=== PATIENT | female | born 1940 | race Caucasian/White ===

== ENCOUNTER → 2023-03-01 | Outpatient (CLI) | payer MEDICARE ==
--- NOTE | 2023-03-01 12:04 | XR ---
EXAMINATION TYPE: XR chest 2V DATE OF EXAM: 03/01/2023 11:45 AM COMPARISON: None TECHNIQUE: XR chest 2V Frontal and lateral views of the chest. CLINICAL INDICATION:Female, 82 years old with history of J441,[id number] COPD,COUGH; FINDINGS: Lungs/Pleura: No pneumothorax or focal consolidation. Small left pleural effusion. Elevation of the r ight hemidiaphragm. Right lower lung calcified granulomas. Hyperinflation. Surgical clip in the left hilar region. Pulmonary vascularity: Unremarkable. Heart/mediastinum: Cardiomediastinal silhouette is prominent in size. Atherosclerotic calcifications are seen in the aorta. Musculoskeletal: Multiple level degenerative disc disease changes seen throughout the spine. Increase d thoracic kyphosis. Scoliotic curvature. Lines/Tubes: [id number]-p-[id number] subclavian approach projecting over the left hemithorax with distal tip at the cavoatri al junction. IMPRESSION: Background COPD changes with small left pleural effusion.
== END | disposition home or self-care (01) ==
LOC: RADXRYALE 11:31
PROVIDERS: ATTEND Family Medicine
DX: J44.1 Chronic obstructive pulmonary disease with (acute) exacerbation (principal); J90 Pleural effusion, not elsewhere classified
CPT/HCPCS: 71046